=== PATIENT | female | born 2000 | race Caucasian/White ===

== ENCOUNTER 2025-02-07 06:13 | Day surgery (SDC) | payer OTHER ==
[~2025-02-07] VITALS: Ht 165.1 cm; Wt 72.7 kg
[~2025-02-07 06:13] MED LIST: METF-81 PO; NAPR-1196 PO; SODIUM CHLORIDE 0.9% 1,000 ML ONE; TRAZ-252 PO
[2025-02-07] MEDS: SODIUM CHLORIDE 0.9% 1,000 ML IV ONE (07:04)
[2025-02-07] MEDS ORDERED: PROPOFOL 1% 20 ML VIAL IVP ONE (12:00)
[2025-02-07] MEDS ORDERED: LIDOCAINE/PF 2% 5 ML VIAL ONE (12:00)
== END 2025-02-07 10:35 | disposition home or self-care (01) ==
LOC: SURGERY 06:13
PROVIDERS: ATTEND Internal Medicine
DX: R19.4 Change in bowel habit (principal); R19.7 Diarrhea, unspecified; F84.0 Autistic disorder; F31.9 Bipolar disorder, unspecified; F90.9 Attention-deficit hyperactivity disorder, unspecified type; K58.9 Irritable bowel syndrome, unspecified; Z88.8 Allergy status to other drugs, medicaments and biological substances
CPT/HCPCS: 45380; 84703; 88305; C1769; J2704; J3490; J7030